=== PATIENT | female | born 1935 | race Asian ===

== ENCOUNTER 2023-08-03 20:07 | Emergency (ER) | payer OTHER ==
[2023-08-03 20:14] VITALS: RESP 18; TEMP 98.2; BMI 20.7
[2023-08-03 20:59] LABS: HEMOGLOBIN 14.3 G/dL (10.7-15.3); MCH 28.8 pg (25.7-33.7); MCHC 32.6 g/dl (32.0-36.0); MEAN CELL VOLUME 88.4 fl (80-96); MEAN PLT VOLUME 8.9 fl (7.5-11.1); RBC 4.98 10^6/uL (3.60-5.2); RDW 14.8 % (11.6-15.6); WHITE BLOOD COUNT 5.2 10^3/uL (4.0-10.8)
[2023-08-03 21:22] LABS: ALK PHOS 81 U/L (45-117); ANION GAP 8 mmol/L (4-13); BILIRUBIN,TOTAL 0.4 mg/dl (0.2-1); CALCIUM 9.6 mg/dl (8.5-10.1); CHLORIDE 105 mmol/L (98-107); CO2 28 mmol/L (21-32); GLUCOSE,RANDOM 192 mg/dl (74-106); POTASSIUM 4.6 mmol/L (3.5-5.1); SGOT/AST 19 U/L (15-37); SGPT/ALT 14 U/L (7-52); SODIUM 141 mmol/L (136-145); TOT PROT 6.9 g/dl (6.4-8.2)
[2023-08-03 21:45] LABS: EPITHELIAL CELLS 0-5 /hpf
[2023-08-03 21:56] VITALS: BP 168/75; PULSE 78
== END 2023-08-03 21:56 | disposition home or self-care (01) ==
LOC: FER 20:07
DX: I10 Essential (primary) hypertension (principal); R42 Dizziness and giddiness
CPT/HCPCS: 36415; 80053; 81003; 81015; 84484; 85027; 93005; 99284-25

== ENCOUNTER 2023-11-20 15:35 | Emergency (ER) | payer OTHER ==
[2023-11-20] MEDS ORDERED: ONDANSETRON 4 MG/2 ML VIAL ONE (16:09)
[2023-11-20] MEDS ORDERED: ACETAMINOPHEN INJECTION 100 ML ONE (16:09)
[2023-11-20] MEDS: ACETAMINOPHEN 1000 MG/100 ML BAG IVPB ONE (16:22)
[2023-11-20] MEDS: SODIUM CHLORIDE 0.9% 1000 ML INFUS.BAG IV ONE (16:22)
[2023-11-20] MEDS: ONDANSETRON 4 MG/2 ML VIAL IVPUSH ONE (16:22)
[2023-11-20 16:28] VITALS: BP 153/53; PULSE 66; RESP 20; TEMP 98.1; BMI 23.3
[2023-11-20 16:30] LABS: HEMATOCRIT 46.7 % (32.4-45.2); HEMOGLOBIN 15.1 G/dL (10.7-15.3); MCH 28.5 pg (25.7-33.7); MCHC 32.2 g/dl (32.0-36.0); MEAN CELL VOLUME 88.4 fl (80-96); MEAN PLT VOLUME 9.5 fl (7.5-11.1); PLATELET COUNT 168.9 10^3/uL (134-434); RBC 5.28 10^6/uL (3.60-5.2); RDW 15.2 % (11.6-15.6); WHITE BLOOD COUNT 6.1 10^3/uL (4.0-10.8)
[2023-11-20] MEDS ORDERED: FAMOTIDINE 20 MG/50 ML IVPB 20 MG/50 ML MG IVPB ONE (16:30)
[2023-11-20] MEDS: FAMOTIDINE 20 MG/50 ML IVPB 20 MG/50 ML MG IVPB ONE (16:33)
[2023-11-20 16:50] LABS: ALBUMIN 4.1 g/dl (3.4-5.0); BILIRUBIN,TOTAL 0.5 mg/dl (0.2-1); CALCIUM 9.7 mg/dl (8.5-10.1); MAGNESIUM 2.1 mg/dL (1.8-2.4); POTASSIUM 4.7 mmol/L (3.5-5.1); TOT PROT 7.2 g/dl (6.4-8.2)
[2023-11-20 16:51] LABS: INR 1.03 (0.83-1.09); PROTHROMBIN TIME (PATIENT) 11.7 SEC (9.7-13.0)
[2023-11-20 16:53] LABS: ACTIVATED PTT 29.4 SECONDS (25.2-36.5)
[2023-11-20 16:57] LABS: PLATELET ESTIMATE ADEQUATE
[2023-11-20 18:34] LABS: EPITHELIAL CELLS 0-5 /hpf
== END 2023-11-20 19:11 | disposition home or self-care (01) ==
LOC: FER 15:35
PROC: 3E033GC Introduction of Other Therapeutic Substance into Peripheral Vein, Percutaneous Approach (ICD-10-PCS; principal; 2023-11-20)
PROC: 3E033NZ Introduction of Analgesics, Hypnotics, Sedatives into Peripheral Vein, Percutaneous Approach (ICD-10-PCS; 2023-11-20)
PROC: 3E033GC Introduction of Other Therapeutic Substance into Peripheral Vein, Percutaneous Approach (ICD-10-PCS; 2023-11-20)
DX: K52.9 Noninfective gastroenteritis and colitis, unspecified (principal); R10.31 Right lower quadrant pain; Z20.822 Contact with and (suspected) exposure to COVID-19
CPT/HCPCS: 0241U-QW; 36415; 74177-TC; 80053; 81003; 81015; 82962; 83690; 83735; 85027; 85610; 85730; 99285-25; J0131; Q9967

== ENCOUNTER 2024-01-10 18:07 | Emergency (ER) | payer OTHER ==
[2024-01-10 18:15] VITALS: BP 163/91; PULSE 75; RESP 18; TEMP 97.7; BMI 25.7
[2024-01-10] MEDS ORDERED: ACETAMINOPHEN INJECTION 100 ML ONE (19:01)
[2024-01-10] MEDS: ACETAMINOPHEN 1000 MG/100 ML BAG IVPB ONE (19:10)
[2024-01-10 19:12] LABS: HEMATOCRIT 42.6 % (32.4-45.2); HEMOGLOBIN 14.2 G/dL (10.7-15.3); MCH 29.4 pg (25.7-33.7); MCHC 33.3 g/dl (32.0-36.0); MEAN CELL VOLUME 88.2 fl (80-96); MEAN PLT VOLUME 9.6 fl (7.5-11.1); PLATELET COUNT 154.9 10^3/uL (134-434); RBC 4.83 10^6/uL (3.60-5.2); RDW 14.9 % (11.6-15.6); WHITE BLOOD COUNT 6.9 10^3/uL (4.0-10.8)
[2024-01-10 19:30] LABS: EPITHELIAL CELLS 0-5 /hpf
[2024-01-10 19:31] LABS: ALBUMIN 4.4 g/dl (3.4-5.0); BILIRUBIN,TOTAL 0.5 mg/dl (0.2-1); CALCIUM 9.9 mg/dl (8.5-10.1); POTASSIUM 4.3 mmol/L (3.5-5.1); TOT PROT 7.2 g/dl (6.4-8.2)
[2024-01-10 19:34] LABS: PLATELET ESTIMATE ADEQUATE
[2024-01-10] MEDS ORDERED: ONDANSETRON 4 MG/2 ML VIAL ONE (19:52)
[2024-01-10] MEDS ORDERED: FAMOTIDINE 20 MG/50 ML IVPB 20 MG/50 ML MG IVPB ONE (19:52)
[2024-01-10] MEDS ORDERED: MAG HYDROX/AL HYDROX/SIMETH 30 ML UNIT-DOSE CUP ONE (19:52)
[2024-01-10] MEDS: ONDANSETRON 4 MG/2 ML VIAL IVPUSH ONE (19:55)
[2024-01-10] MEDS: FAMOTIDINE 20 MG/50 ML IVPB 20 MG/50 ML MG IVPB ONE (20:00)
[2024-01-10] MEDS: MAG HYDROX/AL HYDROX/SIMETH 30 ML UNIT-DOSE CUP PO ONE (20:15)
== END 2024-01-10 20:20 | disposition home or self-care (01) ==
LOC: FER 18:07
PROC: 3E033GC Introduction of Other Therapeutic Substance into Peripheral Vein, Percutaneous Approach (ICD-10-PCS; principal; 2024-01-10)
PROC: 3E033NZ Introduction of Analgesics, Hypnotics, Sedatives into Peripheral Vein, Percutaneous Approach (ICD-10-PCS; 2024-01-10)
PROC: 3E033GC Introduction of Other Therapeutic Substance into Peripheral Vein, Percutaneous Approach (ICD-10-PCS; 2024-01-10)
DX: R10.84 Generalized abdominal pain (principal); R11.0 Nausea
CPT/HCPCS: 36415; 80053; 81003; 81015; 84484; 85025; 87086; 93005; 99284-25; J0131